=== PATIENT | male | born 1995 | race Caucasian/White ===

== ENCOUNTER 2019-02-13 18:46 | Emergency (ER) | payer SELFPAY ==
[2019-02-13] MEDS ORDERED: Diphtheria,Pertussis(Acell),Tetanus Vaccine 0.5 ML Syringe IM ONE (19:14)
--- NOTE | 2019-02-13 19:47 | CR ---
[id number] RAD/RAD Abdomen Flat Plate 1V Exam: RAD Abdomen Flat Plate 1V Clinical Data: SOFT TISSUE RETAINED FOREIGN BODY COMPARISON: NO PREVIOUS SIMILAR EXAM IS AVAILABLE FINDINGS: A round metallic density is seen in the anterior soft tissues of the lower abdomen. This is seen to the left of midline and in the subcutaneous soft tissues. IMPRESSION: IDENTIFICATION OF TINY METALLIC SOFT TISSUE RADIOPAQUE FOREIGN BODY Alex London MD 02/13/19 1946 Thank you for allowing us to participate in the care of your patient.
[2019-02-13] MEDS ORDERED: Take Home: Cephalexin 500 MG Cap, 4 Cap Pack PO ONE (19:51)
--- NOTE | 2019-02-14 00:04 | EDM.PDOC ---
ED HPI GENERAL MEDICAL PROBLEM - General Chief Complaint: Laceration Stated Complaint: PIECE OF METAL IN STOMACH Time Seen by Provider: 02/13/19 19:00 Source of Information: Reports: Patient History Limitations: Reports: No Limitations - History of Present Illness INITIAL COMMENTS - FREE TEXT/NARRATIVE: Pt. presents to ER with complaints of a puncture would to the abdomen with a chisel. He states that he thinks there may by a retained piece of metal within the wound. He states that his tetanus is not up to date that he is aware of. 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 Pt. states that he was not injured elsewhere. It happened just prior to coming to the ER. Onset: Today Onset Date: 02/13/19 Location: Reports: Abdomen Quality: Reports: Sharp - Related Data Allergies Allergy/AdvReac Type Severity Reaction Status Date / Time No Known Allergies Allergy Verified 02/13/19 19:04 Home Meds: Home Meds . [No Known Home Meds] 02/13/19 [History] Past Medical History - Past Health History Medical/Surgical History: Denies Medical/Surgical History Social & Family History - Tobacco Use Smoking Status *Q: Unknown Ever Smoked ED ROS GENERAL - Review of Systems Review Of Systems: See Below Constitutional: Reports: No Symptoms HEENT: Reports: No Symptoms Respiratory: Reports: No Symptoms Cardiovascular: Reports: No Symptoms Endocrine: Reports: No Symptoms GI/Abdominal: Reports: Abdominal Pain, Other (punture wound lower mid abdomen) : Reports: No Symptoms Musculoskeletal: Reports: No Symptoms Skin: Reports: No Symptoms Neurological: Reports: No Symptoms Psychiatric: Reports: No Symptoms Hematologic/Lymphatic: Reports: No Symptoms Immunologic: Reports: No Symptoms ED EXAM, SKIN/RASH Exam: See Below Exam Limited By: No Limitations General Appearance: Alert, WD/WN, No Apparent Distress GI/Abdominal: Normal Bowel Sounds, Soft, Non-Tender, No Organomegaly, No Distention, No Abnormal Bruit, No Mass, Pelvis Stable, Other (small, approx. 1/ 4 cm puncture wound noted in pannus of patient abdomen. It extend less than 1 cm into the fat. ) (Male) Exam: Deferred Course - Vital Signs Last Recorded V/S: Last Vital Signs Temp 37.2 C 02/13/19 18:46 Pulse 85 02/13/19 18:46 Resp 18 02/13/19 18:46 BP 155/67 H 02/13/19 18:46 Pulse Ox 99 02/13/19 18:46 - Orders/Labs/Meds Orders: Active Orders 24 hr Category Date Time Status Vaccines to be Administered [RC] PER UNIT ROUTINE Care 02/13/19 19:15 Active Meds: Medications Discontinued Medications Generic Name Dose Route Start Last Admin Trade Name Cherry PRN Reason Stop Dose Admin Cephalexin 1 packet 02/13/19 19:51 02/13/19 19:55 Take Home: Cephalexin 500 Mg, 4 Cap Pack PO 02/13/19 19:52 1 packet ONETIME ONE Administration Diphtheria/Tetanus/Acell Pertussis 0.5 ml 02/13/19 19:14 02/13/19 19:30 Adacel IM 02/13/19 19:15 0.5 ml .ONCE ONE Administration Lidocaine HCl 5 ml 02/13/19 19:27 02/13/19 19:37 Xylocaine-Mpf 1% INJECT 02/13/19 19:28 5 ml ONETIME ONE Administration - Radiology Interpretation Free Text/Narrative:: radiograph of the soft tissue of the abdomen reveals a small, approx. 3-4 mm foreign body in abdominal fat. It is suspended in the fat and does not extend past abdominal wall. - Re-Assessments/Exams Free Text/Narrative Re-Assessment/Exam: Area was cleansed with chlorhexidine and normal saline. The puncture would was anesthetized with approx. 3 ml of NS. the edges of the puncture wound were extended and edge retracted. Unable to find the foreign body after repeated probing of the wound. Unable to find any metallic foreign body. Decision was made to forgo further exploration as it is a metallic object and further widening if margins would be more dangerous than allowing the material to remain in the abdomen. Departure - Departure Time of Disposition: 20:01 Disposition: Home, Self-Care 01 Clinical Impression: Foreign body in skin - Discharge Information Instructions: Skin Foreign Body Referrals: PCP,None [Primary Care Provider] - Forms: ED Department Discharge Additional Instructions: Keflex 500mg three times daily The fragment is very small and will not cause any problems. Return to ER if you have any redness, swelling, or discharge from the area. - My Orders Last 24 Hours: My Active Orders 02/13/19 19:15 Vaccines to be Administered [RC] PER UNIT ROUTINE - Assessment/Plan Last 24 Hours: My Active Orders 02/13/19 19:15 Vaccines to be Administered [RC] PER UNIT ROUTINE Plan: Keflex 500mg three times daily The fragment is very small and will not cause any problems. Return to ER if you have any redness, swelling, or discharge from the area
== END 2019-02-13 20:01 | disposition home or self-care (01) ==
LOC: VM.ED 18:46
DX: S31.149A Puncture wound of abdominal wall with foreign body, unspecified quadrant without penetration into peritoneal cavity, initial encounter (principal); Z23 Encounter for immunization; W45.8XXA Other foreign body or object entering through skin, initial encounter
CPT/HCPCS: 10120; 74018; 90471; 90715; 99283-25; 99283-GF; A9270-GY; J2001